=== PATIENT | female | born 1965 | race Caucasian/White ===

== ENCOUNTER 2023-08-01 05:55 | Day surgery (SDC) | payer MEDICAID ==
[~2023-08-01] VITALS: Ht 160 cm; Wt 94.8 kg
[2023-08-01 06:41] LABS: HCG,QUAL RESULT NEGATIVE (NEGATIVE)
[2023-08-01] MEDS ORDERED: ACETAMINOPHEN I.V. 1000 MG 100 ML IV ONE (07:44)
[2023-08-01] MEDS ORDERED: fentaNYL CITRATE/PF 100 MCG/2 ML AMP ONE (07:44)
[2023-08-01] MEDS ORDERED: MIDAZOLAM HCL 2 MG/2 ML VIAL (VERSED) ONE (07:44)
[2023-08-01 08:00] VITALS: O2SAT 99
[2023-08-01] MEDS ORDERED: ONDANSETRON HCL 4 MG/2 ML VIAL IVP PRN (08:45)
[2023-08-01] MEDS ORDERED: fentaNYL CITRATE/PF 100 MCG/2 ML AMP IVP PRN (08:45)
[2023-08-01] MEDS ORDERED: HYDROmorphone 1 MG/ML INJ. CARTRIDGE IVP PRN ×2 (08:45)
[2023-08-01] MEDS ORDERED: LR 1,000 ML IV ONE (08:45)
[2023-08-01] MEDS ORDERED: SUGAMMADEX SODIUM 200 MG/2 ML VIAL IV ONE (09:54)
[2023-08-01] MEDS ORDERED: PROPOFOL 200MG/ 20ML VIAL (DIPRIVAN) IV ONE (09:54)
[2023-08-01] MEDS ORDERED: LR 1,000 ML IV.SOLN IV ONE (09:54)
[2023-08-01] MEDS ORDERED: NS 250 ML IV.SOLN IV ONE (09:54)
[2023-08-01] MEDS ORDERED: NS IRRIG SOLN 1000 ML IR ONE (09:54)
[2023-08-01] MEDS ORDERED: SEVOFLURANE 15 MIN GAS INH ONE (09:54)
[2023-08-01] MEDS ORDERED: ePHEDrine sulfate 50 MG/ML VIAL ONE (09:54)
[2023-08-01] MEDS ORDERED: ROCURONIUM BROMIDE 10 MG/ML (ZEMURON) ONE (09:54)
[2023-08-01] MEDS ORDERED: OXYMETAZOLINE HCL 0.05% NASAL SPRAY NS ONE (09:54)
[2023-08-01] MEDS ORDERED: ONDANSETRON HCL 4 MG/2 ML VIAL ONE (09:54)
[2023-08-01] MEDS ORDERED: LIDOCAINE/EPI 1% 1:100000 20 ML VIAL ONE (09:54)
[2023-08-01] MEDS ORDERED: DEXAMETHASONE SOD PHOSPHATE 4 MG/ML VIAL ONE (09:54)
[2023-08-01] MEDS ORDERED: HYDROmorphone 1 MG/ML INJ. CARTRIDGE ONE (10:13)
[2023-08-01 13:13] VITALS: BP_SYST 122; PULSE 60; RESP 18
== END 2023-08-01 12:30 | disposition home or self-care (01) ==
LOC: SMU 05:55 → SDS 05:55
PROVIDERS: ATTEND Otolaryngology
DX: J34.89 Other specified disorders of nose and nasal sinuses (principal); D38.5 Neoplasm of uncertain behavior of other respiratory organs; J34.3 Hypertrophy of nasal turbinates; E66.01 Morbid (severe) obesity due to excess calories; Z68.42 Body mass index [BMI] 45.0-49.9, adult; J30.1 Allergic rhinitis due to pollen; J34.2 Deviated nasal septum; Z79.899 Other long term (current) drug therapy
CPT/HCPCS: 31256; 84703; 88304; 88311; 30140; 30520; J3490; J1100; J3465; J2405; J2704; J3010; J1170; J7120; J7050; J0131

== ENCOUNTER 2023-08-24 07:05 | Emergency (ER) | payer MEDICAID ==
[~2023-08-24] VITALS: Ht 162.6 cm; Wt 94.3 kg
[2023-08-24 07:21] VITALS: BP_SYST 152; PULSE 63; RESP 20; TEMP 97.7; O2SAT 100
[2023-08-24] MEDS ORDERED: KETOROLAC TROMETHAMINE 60 MG/2 ML VIAL IM ONE (07:30)
[2023-08-24 07:49] LABS: BASOPHILS % (AUTO) 0.4 % (0.0-2.0); EOSINOPHILS % (AUTO) 0.2 % (0.0-4.0); HEMATOCRIT 40.3 % (36-48); HEMOGLOBIN 13.3 g/dL (12.0-16.0); LYMPHOCYTES # (AUTO) 0.8 K/uL (1.0-5.5); LYMPHOCYTES % (AUTO) 11.5 % (20.5-51.5); MEAN CORPUSCULAR HEMOGLOBIN 29 pg (27-31); MEAN CORPUSCULAR HGB CONC 33 % (32-36); MEAN CORPUSCULAR VOLUME 87 fL (79.0-98.0); MONOCYTES # (AUTO) 0.2 K/uL (0.0-1.0); NEUTROPHILS # (AUTO) 5.7 K/uL (1.8-7.7); NEUTROPHILS % (AUTO) 84.9 % (40.0-70.0); PLATELET COUNT (AUTO) 152 K/uL (130-430); RED BLOOD CELL COUNT(AUTO) 4.61 MIL/uL (4.2-6.2); WHITE BLOOD COUNT (AUTO) 6.7 K/uL (4.8-10.8)
[2023-08-24 08:05] LABS: ANION GAP 6 (5-15); CALCIUM 9.7 mg/dL (8.4-11.0); CARBON DIOXIDE 29 mmol/L (23-29); CHLORIDE 102 mmol/L (98-107); GFR AFRICAN AMERICAN 112 mL/min (>90); GLUCOSE 133 mg/dL (74-106); POTASSIUM 4.2 mmol/L (3.5-5.1); SODIUM SERUM 137 mmol/L (136-145); UREA NITROGEN, BLOOD 15 mg/dL (8-21)
[2023-08-24 08:14] LABS: ALANINE AMINOTRANSFERASE 82 U/L (12-78); ALBUMIN 3.7 g/dL (3.4-4.8); AMYLASE 33 U/L (0-100); ASPARTATE AMINOTRANSFERASE 76 U/L (10-37); LIPASE 30 U/L (16-77); TOTAL BILIRUBIN 0.8 mg/dL (0.0-1.0); TOTAL PROTEIN, SERUM 7.1 g/dL (6.4-8.3)
[2023-08-24 08:28] LABS: SERUM HCG (QUALITATIVE) NEGATIVE (NEGATIVE)
[2023-08-24 09:16] LABS: GFR NON AFRICAN-AMERICAN 92 mL/min (>90)
[2023-08-24 09:27] LABS: BILIRUBIN,URINE NEGATIVE (NEGATIVE); BLOOD, URINE NEGATIVE (NEGATIVE); CLARITY/URINE CLEAR (CLEAR); COLOR,URINE YELLOW (YELLOW); GLUCOSE,URINE NEGATIVE (NEGATIVE); KETONES,URINE NEGATIVE (NEGATIVE); LEUKOCYTE ESTERASE ,URINE NEGATIVE (NEGATIVE); NITRITE, URINE NEGATIVE (NEGATIVE); PROTEIN URINE NEGATIVE (NEGATIVE); UROBILINOGEN,URINE 0.2 (0.2-1.0)
[2023-08-24] MEDS ORDERED: IBUP-1969 PO (09:43)
[2023-08-24] MEDS ORDERED: TRAM50TA2 PO (09:43)
[2023-08-24 09:52] VITALS: BP_SYST 154; PULSE 59; RESP 16; TEMP 98.3; O2SAT 100
== END 2023-08-24 08:57 | disposition home or self-care (01) ==
LOC: SED 07:05
DX: K80.20 Calculus of gallbladder without cholecystitis without obstruction (principal); R10.13 Epigastric pain; Z79.899 Other long term (current) drug therapy
CPT/HCPCS: 99285; 76705; 80053; 81001; 82150; 84703; 83690; 85025; 84484; 36415; 96372; 83605; 81003; J1885

== ENCOUNTER 2023-12-28 13:28 | Inpatient (IN) | payer MEDICAID ==
[~2023-12-28] VITALS: Ht 162.6 cm; Wt 99.3 kg
[~2023-12-28 13:28] MED LIST: IBUP-1969 PO; TRAM50TA2 PO
[2023-12-28 13:35] VITALS: BP_SYST 143; PULSE 71; RESP 18; TEMP 96.9; O2SAT 94
[2023-12-28 14:44] LABS: BASOPHILS % (AUTO) 0.3 % (0.0-2.0); EOSINOPHILS % (AUTO) 0.6 % (0.0-4.0); HEMATOCRIT 37.5 % (36-48); HEMOGLOBIN 12.7 g/dL (12.0-16.0); LYMPHOCYTES # (AUTO) 0.9 K/uL (1.0-5.5); LYMPHOCYTES % (AUTO) 12.2 % (20.5-51.5); MEAN CORPUSCULAR HEMOGLOBIN 30 pg (27-31); MEAN CORPUSCULAR HGB CONC 34 % (32-36); MEAN CORPUSCULAR VOLUME 87 fL (79.0-98.0); MONOCYTES # (AUTO) 0.4 K/uL (0.0-1.0); MONOCYTES % (AUTO) 5.5 % (1.7-9.3); NEUTROPHILS # (AUTO) 6.1 K/uL (1.8-7.7); NEUTROPHILS % (AUTO) 81.4 % (40.0-70.0); PLATELET COUNT (AUTO) 141 K/uL (130-430); RED BLOOD CELL COUNT(AUTO) 4.31 MIL/uL (4.2-6.2); WHITE BLOOD COUNT (AUTO) 7.5 K/uL (4.8-10.8)
[2023-12-28 14:53] LABS: ANION GAP 4 (5-15); CALCIUM 8.3 mg/dL (8.4-11.0); CARBON DIOXIDE 30 mmol/L (23-29); CHLORIDE 107 mmol/L (98-107); CREATININE 0.73 mg/dL (0.55-1.30); GFR AFRICAN AMERICAN 106 mL/min (>90); GLUCOSE 139 mg/dL (74-106); POTASSIUM 3.8 mmol/L (3.5-5.1); SODIUM SERUM 141 mmol/L (136-145); UREA NITROGEN, BLOOD 21 mg/dL (8-21)
[2023-12-28 14:54] LABS: GFR NON AFRICAN-AMERICAN 88 mL/min (>90)
[2023-12-28 14:56] LABS: HEMOGLOBIN A1C 5.58 % (<5.7)
[2023-12-28 15:03] LABS: CHOLESTEROL 150 mg/dL (<200); HDL CHOLESTEROL 66 mg/dL (>55); TRIGLYCERIDES 90 mg/dL (30-150)
[2023-12-28 15:08] LABS: PROTHROMBIN TIME 10.6 SECS (9.5-12.5)
[2023-12-28] MEDS: ASPIRIN 81 MG TABLET(ECOTRIN) PO ONE (15:20)
[2023-12-28] MEDS: MORPHINE 2 MG/ML INJ. SYRINGE IVP ONE (15:21)
[2023-12-28] MEDS: ONDANSETRON HCL 4 MG/2 ML VIAL IVP ONE (15:22)
[2023-12-28 15:32] LABS: AMYLASE 32 U/L (0-100); LIPASE 34 U/L (16-77)
[2023-12-28 16:44] LABS: BILIRUBIN,URINE NEGATIVE (NEGATIVE); BLOOD, URINE NEGATIVE (NEGATIVE); CLARITY/URINE CLEAR (CLEAR); COLOR,URINE YELLOW (YELLOW); GLUCOSE,URINE NEGATIVE (NEGATIVE); KETONES,URINE NEGATIVE (NEGATIVE); LEUKOCYTE ESTERASE ,URINE NEGATIVE (NEGATIVE); NITRITE, URINE NEGATIVE (NEGATIVE); PROTEIN URINE NEGATIVE (NEGATIVE); UROBILINOGEN,URINE 0.2 (0.2-1.0)
[2023-12-28 16:55] LABS: BARBITURATE, URINE NEGATIVE (NEG <=200); BENZODIAZEPINE, URINE NEGATIVE (NEG <=150); CANNABINOID, URINE NEGATIVE (NEG <=50); COCAINE, URINE NEGATIVE (NEG <=150); METHAMPHETAMINES SCREEN,URINE NEGATIVE (NEG <=500); OPIATE, URINE POSITIVE (NEG <=100); PHENCYCLIDINE SCREEN,URINE NEGATIVE (NEG <=25); UR TRICYCLIC ANTIDEPRESSANTS NEGATIVE (NEG <=300); URINE AMPHETAMINE NEGATIVE (NEG <=500); URINE METHADONE NEGATIVE (NEG <=200); URINE OXYCODONE SCREEN NEGATIVE (NEG <=100)
[2023-12-28 23:11] VITALS: BP_SYST 111; PULSE 62; RESP 20; TEMP 98
[2023-12-29] VITALS (7 sets, daily range): BP systolic 103–126; PULSE 55–65; RESP 16–18; TEMP 97.4–98.6; O2SAT 95–100
[2023-12-29] MEDS ORDERED: LORazepam 2 MG/ML VIAL IVP PRN (09:45)
[2023-12-29] MEDS ORDERED: traMADol HCL HCL 50 MG TABLET (ULTRAM) PO PRN (09:45)
[2023-12-29] MEDS ORDERED: ONDANSETRON HCL 4 MG/2 ML VIAL IVP PRN (09:45)
[2023-12-29] MEDS: NORMAL SALINE 5 ML DISP.SYRIN IVF SCH (14:28)
[2023-12-30] VITALS: BP_SYST 114; PULSE 70; RESP 18; TEMP 97.6; O2SAT 94
[2023-12-30 04:00] VITALS: BP_SYST 117; PULSE 74; RESP 18; TEMP 97.7; O2SAT 95
[2023-12-30 06:11] LABS: BASOPHILS % (AUTO) 0.5 % (0.0-2.0); EOSINOPHILS # (AUTO) 0.1 K/uL (0.0-0.4); EOSINOPHILS % (AUTO) 1.7 % (0.0-4.0); HEMATOCRIT 38.6 % (36-48); LYMPHOCYTES # (AUTO) 1.7 K/uL (1.0-5.5); LYMPHOCYTES % (AUTO) 27.6 % (20.5-51.5); MEAN CORPUSCULAR HEMOGLOBIN 30 pg (27-31); MEAN CORPUSCULAR HGB CONC 34 % (32-36); MEAN CORPUSCULAR VOLUME 88 fL (79.0-98.0); MONOCYTES # (AUTO) 0.3 K/uL (0.0-1.0); MONOCYTES % (AUTO) 5.4 % (1.7-9.3); NEUTROPHILS % (AUTO) 64.8 % (40.0-70.0); PLATELET COUNT (AUTO) 143 K/uL (130-430); RED BLOOD CELL COUNT(AUTO) 4.41 MIL/uL (4.2-6.2); WHITE BLOOD COUNT (AUTO) 6.2 K/uL (4.8-10.8)
[2023-12-30 06:50] LABS: CALCIUM 8.5 mg/dL (8.4-11.0); CREATININE 0.69 mg/dL (0.55-1.30)
[2023-12-30 08:00] VITALS: BP_SYST 122; PULSE 55; RESP 18; TEMP 97.9; O2SAT 100
[2023-12-30] MEDS: IBUPROFEN 600 MG TABLET PO PRN (08:51)
[2023-12-30] MEDS ORDERED: ASPI-1393 PO (09:23)
[2023-12-30 12:00] VITALS: BP_SYST 132; PULSE 58; RESP 18; TEMP 98.2; O2SAT 100
[2023-12-30 16:00] VITALS: BP_SYST 118; PULSE 81; RESP 18; TEMP 98; O2SAT 99
[2023-12-30 17:42] VITALS: BP_SYST 117; PULSE 77; RESP 18; TEMP 98; O2SAT 99
== END 2023-12-30 20:00 | disposition home or self-care (01) | DRG 45 ==
LOC: SED 13:28 → STU 16:08
PROVIDERS: ADMIT Preventive Medicine Preventive Medicine/Occupational Environmental Medicine; ATTEND Preventive Medicine Preventive Medicine/Occupational Environmental Medicine
DX: I63.9 Cerebral infarction, unspecified (principal); E83.51 Hypocalcemia; R07.89 Other chest pain; I10 Essential (primary) hypertension; R73.9 Hyperglycemia, unspecified; Z87.442 Personal history of urinary calculi; Z79.899 Other long term (current) drug therapy; R20.2 Paresthesia of skin
CPT/HCPCS: 36415; 70450; 70496; 70498; 71045; 80048; 80061; 80307; 81001; 81003; 82150; 82948; 83037; 83605; 83690; 84484; 85025; 85610; 85730; 86886; 86900; 86901; 93005; 93306; 97116-GP; 97163-GP; 99285; G0378; J2270; J2405